=== PATIENT | male | born 1975 | race Caucasian/White ===

== ENCOUNTER 2021-03-30 11:05 | Emergency (ER) | payer SELFPAY ==
[2021-03-30 11:14] VITALS: BP 139/82; PULSE 91; RESP 16; TEMP 37.2; O2SAT 100
--- NOTE | 2021-03-30 11:20 | ED.UPPEXIN ---
HPI - Extremity Injury (Upper) General Chief Complaint: Extremity Injury, Upper Stated Complaint: R thumb injury Time Seen by Provider: 03/30/21 11:18 Source: patient Mode of arrival: ambulatory Limitations: no limitations History of Present Illness HPI narrative: 46-year-old male presented for complaint of pain to the tip of the right thumb for about 2 weeks after injury. He states time of injury he was sewing work boot with a large gauge needle when he punctured the right thumb. Endorses minimal bleeding at the time, and he cleaned it with soap and water and iodine. Endorses it healed on its own and did not seek consult at the time of injury. Denies redness, swelling, fever, streaking or drainage to the site. Patient states the needle was dirty, as it was found in an outside toolbox when he used it. Unsure of tetanus vaccination. Related Data Home Medications Medication Instructions Recorded Confirmed No Home Medications 03/30/21 03/30/21 Allergies Allergy/AdvReac Type Severity Reaction Status Date / Time No Known Allergies Allergy Verified 05/29/17 20:08 Review of Systems Review of Systems: CONSTITUTIONAL: Denies fever, chills EYES: Denies visual changes ENT: Denies rhinorrhea CARDIOVASCULAR: Denies chest pain RESPIRATORY: Denies cough or dyspnea. GASTROINTESTINAL: Denies abdominal pain, nausea, vomiting, or diarrhea. SKIN: Endorses puncture wound to the right thumb MUSCULOSKELETAL: Denies back pain, joint pain, or myalgia. NEUROLOGIC: Denies headache, numbness, tingling, or weakness. PSYCH: Denies depression or anxiety. All systems reviewed & are unremarkable except as noted in HPI and below PMFSH Comments At time of signature, I have reviewed and agree with nursing past medical, surgical, social and family history unless otherwise noted. Please see nursing chart for further information. There is no relevant family history pertinent to the presenting complaint Exam Narrative: GENERAL: Well-appearing, well-nourished, and in no acute distress. HEAD: Normocephalic, atraumatic. EYES: PERRLA, conjunctivae clear NECK: Supple. CHEST: Speaks in full sentences. No respiratory distress. HEART: Regular rate and rhythm. Normal and equal peripheral pulses. EXTREMITIES: Right thumb with approximately 0.5 cm healing puncture site with mild erythema, mild swelling, and mild tenderness with deep palpation. No apparent deformity. Normal ROM. Cap refill less than 3 seconds. Radial PP. SKIN: Warm, dry, no rash. NEURO: Alert and oriented x3. PSYCH: Normal mood and affect Course Course Emergency Course: We discussed appearance of wound, healing at this time without signs of infection. Will update tetanus. v/u Patient is aware of diagnosis, understands and agrees to treatment plan. Anticipatory guidance given. Patient agrees to follow-up as directed and is aware of reasons to seek care at the emergency department. Portions of this record may have been created with voice recognition software Level of Care: Express Care Visit Vital Signs Vital signs: Vital Signs Temperature 99 F 03/30/21 11:14 Pulse Rate 91 03/30/21 11:14 Respiratory Rate 16 03/30/21 11:14 Blood Pressure 139/82 03/30/21 11:14 Pulse Oximetry 100 03/30/21 11:14 Temperature 99 F 03/30/21 11:14 Pulse Rate 91 03/30/21 11:14 Respiratory Rate 16 03/30/21 11:14 Blood Pressure 139/82 03/30/21 11:14 Pulse Oximetry 100 03/30/21 11:14 Reviewed MDM - Extremity Injury (Upper) MDM Narrative Medical decision making narrative: Patient's injury and pain appear to be of musculoskeletal nature. No concerns for compartment syndrome. No concern for tendon or nerve injury. Patient is treatable on an outpatient basis. Differential Diagnosis Differential diagnosis: Likely finger sprain and other (phalanx fracture, puncture wound, laceration, cellulitis) Discharge Plan Discharge Clinical Impression: Puncture wound Patient Dispo
[2021-03-30] MEDS: TETANUS,DIPHTHERIA,AC PERTUSSIS ADULT (0.5 ML) BOOSTRIX IM (11:28)
== END 2021-03-30 11:34 | disposition home or self-care (01) ==
PROVIDERS: Emergency Provider Nurse Practitioner Family
DX: S61.031A Puncture wound without foreign body of right thumb without damage to nail, initial encounter (principal); W27.3XXA Contact with needle (sewing), initial encounter; Z23 Encounter for immunization
CPT/HCPCS: 90471; 90715; 99202; G0463

== ENCOUNTER 2021-05-04 19:52 | Emergency (ER) | payer SELFPAY ==
[2021-05-04] VITALS (13 sets, daily range): BP systolic 146–173; BP diastolic 84–103; PULSE 57–79; RESP 15–21; TEMP 36.7; O2SAT 93–100
--- NOTE | ~2021-05-04 | XR_ITS ---
EXAMINATION: XR chest 2V DATE: 05/04/2021 21:06 INDICATION: 2 days of left-sided chest pain TECHNIQUE: PA and lateral views of the chest were obtained. COMPARISON: Chest radiograph dated 02/27/2014 FINDINGS: The lungs remain clear with no focal airspace opacities, pulmonary edema, pleural effusion or pneumot horax. The cardiomediastinal silhouette is normal. Mild to moderate spondylosis in the thoracic and v isualized upper lumbar spine. IMPRESSION: 1. No acute cardiopulmonary disease. Reviewed, dictated and finalized at location A.
--- NOTE | 2021-05-04 19:53 | ECG_ITS ---
Measurements Intervals [place] Rate: 65 P: 57 FL: 149 QRS: 73 QRSD: 101 T: 34 QT: 347 QTc: 361 Interpretive Statements SINUS RHYTHM EARLY REPOLARIZATION NO PREVIOUS ECG AVAILABLE FOR COMPARISON Electronically Signed On 05-05-2021 14:13:32 CDT by Fritz Espitia M.D.
--- NOTE | 2021-05-04 20:25 | ED.GENADULT ---
HPI - General Adult General Chief complaint: Chest Pain Stated complaint: chest pains Time Seen by Provider: 05/04/21 20:12 History of Present Illness HPI narrative: Patient is a 46-year-old gentleman who presents the emergency department with chief complaint of chest pain. Patient reports that the is an avid cannabis user and yesterday was on a hike of about 9 miles and used several cannabis Gummies and then was using a higher concentration vape pen that was used patient states that he felt a tightness in the left side of his chest and then reports that the symptoms started to slowly improve. Patient states that he had another episode afterwards and then had another episode this morning. Patient decided to come to the emergency department as he worked his manual labor and usually does not have these type of discomfort. Patient states that previously whenever he is used a THC vape pen of this concentration he has had some tightness in his chest. The patient also reports that he has had some palpitations and fluttering in his chest and felt a little anxious Related Data Home Medications Medication Instructions Recorded Confirmed No Home Medications 03/30/21 03/30/21 Allergies Allergy/AdvReac Type Severity Reaction Status Date / Time No Known Allergies Allergy Verified 05/29/17 20:08 Review of Systems Review of Systems: A 10 system review of systems was completed on the patient and is negative except for what is stated in the HPI. Nursing and ancillary documentation was reviewed. Exam Narrative: GENERAL: Well-appearing, well-nourished, and in no acute distress. HEAD: Normocephalic, atraumatic. EYES: PERRLA and EOMI. ENT: Nares clear, no rhinorrhea or epistaxis. Mucous membranes moist. NECK: Supple. CHEST: Clear to auscultation. No respiratory distress. HEART: Regular rate and rhythm. No murmur heard. Normal peripheral pulses. ABDOMEN: Soft, nontender, nondistended, normal active bowel sounds. EXTREMITIES: Normal range of motion. No edema. SKIN: Warm, dry, no rash. NEURO: No focal deficits. Alert and oriented x3. PSYCH: Normal mood and affect. Course Course Emergency Course: EKG is sinus rhythm rate of [address] elevation or ST depression Vital Signs Vital signs: Vital Signs Temperature 36.7 C 05/04/21 19:54 Pulse Rate 79 05/04/21 19:54 Respiratory Rate 18 05/04/21 19:54 Blood Pressure 159/103 H 05/04/21 19:54 Pulse Oximetry 100 05/04/21 19:54 Temperature 36.7 C 05/04/21 19:54 Pulse Rate 67 05/04/21 20:45 Respiratory Rate 17 05/04/21 20:45 Blood Pressure 158/87 H 05/04/21 20:32 Pulse Oximetry 96 05/04/21 20:45 Medical Decision Making Vital Signs Vital Signs: Vital Signs Temperature 36.7 C 05/04/21 19:54 Pulse Rate 79 05/04/21 19:54 Respiratory Rate 18 05/04/21 19:54 Blood Pressure 159/103 H 05/04/21 19:54 Pulse Oximetry 100 05/04/21 19:54 Temperature 36.7 C 05/04/21 19:54 Pulse Rate 67 05/04/21 20:45 Respiratory Rate 17 05/04/21 20:45 Blood Pressure 158/87 H 05/04/21 20:32 Pulse Oximetry 96 05/04/21 20:45 Lab Data Result diagrams: 05/04/21 20:32 05/04/21 20:32 Labs: Lab Results 05/04/21 05/04/21 05/04/21 Range/Units 20:32 20:32 20:32 WBC 6.0 (4.5-10.0) K/mm3 RBC 4.96 (4.6-6.20) M/mm3 Hgb 15.0 (14.0-18.0) g/dL Hct 44.2 (42.0-52.0) % MCV 89.1 (80-100) fl MCH 30.2 (26-34) pg MCHC 33.9 (32-36) g/dl RDW 12.8 (11.5-14.5) % Plt Count 212 (150-375) k/mm3 MPV 10.7 H (7.4-10.4) fl Immature Gran % (Auto) 0.2 (0-0.5) % Neut % (Auto) 57.8 (45.5-73.1) % Lymph % (Auto) 30.0 (18.3-44.2) % [place]anan % (Auto) 9.3 H (2.6-8.5) % Eos % (Auto) 2.0 (0-4.4) % Baso % (Auto) 0.7 (0.2-1.2) % Lymph # (Auto) 1.81 (0.9-3.2) K/mm3 [place]anan # (Auto) 0.6 (0.1-0.6) K/mm3 Eos # (Auto) 0.1 (0-0.3) K/mm3 Baso # (Auto) 0.0 (0.0-
[2021-05-04] MEDS: ASPIRIN 81 MG CHEWABLE TABLET 324 MG PO (20:33)
[2021-05-04] MEDS: LORazepam INJ (*CRX) 2 MG/ML VIAL 1 MG IV PUSH (20:38)
[2021-05-04 20:43] LABS: Basophils Percent Auto 0.7 % (0.2-1.2); Eosinophils Absolute Auto 0.1 K/mm3 (0-0.3); Hematocrit 44.2 % (42.0-52.0); Immature Granulocyte Absolute 0.01 K/mm3 (0.00-0.031); Immature Granulocyte Percent A 0.2 % (0-0.5); Lymphocytes Absolute Auto 1.81 K/mm3 (0.9-3.2); Mean Corpuscular HGB Conc 33.9 g/dl (32-36); Mean Corpuscular Hemoglobin 30.2 pg (26-34); Mean Corpuscular Volume 89.1 fl (80-100); Mean Platelet Volume 10.7 fl (7.4-10.4); Monocytes Absolute Auto 0.6 K/mm3 (0.1-0.6); Monocytes Percent Auto 9.3 % (2.6-8.5); Neutrophils Absolute Auto 3.5 K/mm3 (1.3-6.7); Neutrophils Percent Auto 57.8 % (45.5-73.1); Platelet Count Result 212 k/mm3 (150-375); Red Blood Count 4.96 M/mm3 (4.6-6.20); Red Cell Distribution Width 12.8 % (11.5-14.5)
[2021-05-04 20:49] LABS: Prothrombin Time 12.5 Seconds (11.1-14.7)
[2021-05-04 20:50] LABS: Partial Thromboplastin Time 25.7 SECONDS (22.3-36.8)
[2021-05-04 20:53] LABS: Alanine Aminotransferase 75 U/L (4-50); Albumin Level 4.3 g/dL (3.5-5.1); Alkaline Phosphatase 52 U/L (38-126); Anion Gap 6 mmol/L (8-16); Aspartate Amino Transferase 41 U/L (17-59); Bilirubin,Total 0.1 mg/dL (0.2-1.3); Blood Urea Nitrogen 17 mg/dL (9-20); Calcium 9.1 mg/dL (8.4-10.2); Carbon Dioxide 27 mmol/L (22-30); Chloride 105 mmol/L (98-107); Estimated CRCL calculation 100 ml/min; Estimated Glomerular Filt Rate > 60; Glucose 101 mg/dL (65-110); Lipase 145 U/L (23-300); Potassium 4.3 mmol/L (3.4-5.0); Sodium 138 mmol/L (137-145)
[2021-05-04 21:04] LABS: Troponin I < 0.012 ng/mL (0.000-0.034)
== END 2021-05-04 22:12 | disposition home or self-care (01) ==
PROVIDERS: Emergency Medicine; Emergency Provider Emergency Medicine
DX: R07.89 Other chest pain (principal)
CPT/HCPCS: 36415; 71046; 80053; 83690; 84484; 85025; 85610; 85730; 93005; 96374; 99284; A9270; J2060

== ENCOUNTER 2021-05-20 17:45 | Emergency (ER) | payer SELFPAY ==
[2021-05-20] VITALS (11 sets, daily range): BP systolic 136–154; BP diastolic 93–101; PULSE 69–86; RESP 11–18; TEMP 37.2; O2SAT 95–99
--- NOTE | ~2021-05-20 | XR_ITS ---
XR chest 2V DATE: 05/20/2021 18:14 INDICATION: Left-sided chest pain radiating to back, shortness of breath for 2 weeks TECHNIQUE: PA and lateral views COMPARISON: 05/04/2021 2 view chest FINDINGS: Normal heart size. No hilar or mediastinal enlargement. No pulmonary infiltrate or consolid ation, pleural effusion or pulmonary vascular congestion. Degenerative spurring mild scoliosis of the thoracic spine. IMPRESSION: No active cardiopulmonary disease Reviewed, dictated and finalized at location A.
--- NOTE | 2021-05-20 17:47 | ECG_ITS ---
Measurements Intervals [place] Rate: 82 P: 60 CT: 132 QRS: 76 QRSD: 97 T: 40 QT: 334 QTc: 390 Interpretive Statements SINUS RHYTHM COMPARED TO ECG 05/04/2021 20:02:57 NO SIGNIFICANT CHANGES Electronically Signed On 05-20-2021 18:45:40 CDT by En Jennings M.D.
[2021-05-20 18:09] LABS: Basophils Absolute Auto 0.1 K/mm3 (0.0-0.1); Basophils Percent Auto 0.8 % (0.2-1.2); Eosinophils Absolute Auto 0.1 K/mm3 (0-0.3); Eosinophils Percent Auto 1.6 % (0-4.4); Hematocrit 44.4 % (42.0-52.0); Immature Granulocyte Absolute 0.02 K/mm3 (0.00-0.031); Immature Granulocyte Percent A 0.3 % (0-0.5); Lymphocytes Absolute Auto 1.74 K/mm3 (0.9-3.2); Lymphocytes Percent Auto 22.9 % (18.3-44.2); Mean Corpuscular HGB Conc 33.8 g/dl (32-36); Mean Corpuscular Hemoglobin 30.1 pg (26-34); Mean Corpuscular Volume 89.2 fl (80-100); Mean Platelet Volume 10.4 fl (7.4-10.4); Monocytes Absolute Auto 0.7 K/mm3 (0.1-0.6); Monocytes Percent Auto 9.5 % (2.6-8.5); Neutrophils Absolute Auto 4.9 K/mm3 (1.3-6.7); Neutrophils Percent Auto 64.9 % (45.5-73.1); Platelet Count Result 196 k/mm3 (150-375); Red Blood Count 4.98 M/mm3 (4.6-6.20); Red Cell Distribution Width 12.7 % (11.5-14.5); White Blood Count 7.6 K/mm3 (4.5-10.0)
--- NOTE | 2021-05-20 18:15 | PC.NURSE ---
Dr. Linda at bedside to assess pt.
[2021-05-20 18:17] LABS: Prothrombin Time 12.4 Seconds (11.1-14.7)
[2021-05-20 18:18] LABS: Partial Thromboplastin Time 28.2 SECONDS (22.3-36.8)
[2021-05-20 18:19] LABS: Alanine Aminotransferase 80 U/L (4-50); Albumin Level 4.6 g/dL (3.5-5.1); Alkaline Phosphatase 59 U/L (38-126); Anion Gap 7 mmol/L (8-16); Aspartate Amino Transferase 51 U/L (17-59); Bilirubin,Total 0.2 mg/dL (0.2-1.3); Blood Urea Nitrogen 20 mg/dL (9-20); Calcium 8.7 mg/dL (8.4-10.2); Carbon Dioxide 28 mmol/L (22-30); Chloride 100 mmol/L (98-107); Estimated CRCL calculation 90 ml/min; Estimated Glomerular Filt Rate > 60; Glucose 88 mg/dL (65-110); Lipase 149 U/L (23-300); Potassium 4.5 mmol/L (3.4-5.0); Sodium 135 mmol/L (137-145)
--- NOTE | 2021-05-20 18:26 | ED.CHESTPAIN ---
HPI - Chest Pain General Chief Complaint: Chest Pain Stated Complaint: chest pain Time Seen by Provider: 05/20/21 18:14 History of Present Illness HPI narrative: Patient is a 46-year-old male complaining of chest pain, left chest wall, 5 out of 10, worse with movement started 1 week ago, Pt states that he was seen here 2 weeks ago for the same complaint and his work-up was negative, diagnosed with musculoskeletal pain. 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 Patient also states that he exercises a lot and plays. Patient denies any shortness of breath, abdominal pain, nausea, vomiting, diaphoresis, fever or chills. Patient thinks that it could be anxiety . Related Data Home Medications Medication Instructions Recorded Confirmed No Home Medications 03/30/21 03/30/21 Allergies Allergy/AdvReac Type Severity Reaction Status Date / Time No Known Allergies Allergy Verified 05/29/17 20:08 Review of Systems Review of Systems: All systems reviewed & are unremarkable except as noted in HPI and below Constitutional: Constitutional: Denies body ache(s), Denies chills, Denies excessive sweating, Denies fatigue, Denies fever(s), Denies headache(s), Denies lethargy, Denies malaise, Denies weakness and Denies weight loss Eyes: Eyes: Denies blurry vision, Denies change in vision and Denies loss of vision ENT: Denies dizziness, Denies ear discharge, Denies headache(s), Denies lip swelling, Denies epistaxis, Denies nasal congestion, Denies neck pain, Denies throat swelling and Denies tongue swelling Cardiovascular: Cardiovascular: Denies diaphoresis, Denies rapid heart rate, Denies edema, Denies irregular heart rhythm, Denies lightheadedness, Denies palpitations, Denies dyspnea and Denies dyspnea on exertion Respiratory: Respiratory: Denies chest congestion, Denies cough, Denies hemoptysis, Denies dyspnea and Denies dyspnea on exertion Gastrointestinal: Gastrointestinal: Denies abdominal pain, Denies melena, Denies hematochezia, Denies diarrhea, Denies nausea, Denies vomiting and Denies hematemesis Musculoskeletal: Musculoskeletal: Denies abnormal gait, Denies deformity, Denies joint swelling, Denies limited range of motion, Denies neck pain and Denies numbness Neurologic: Denies Abnormal speech present, Denies abnormal gait, Denies confusion, Denies dizziness, Denies headache(s), Denies focal weakness, Denies loss of vision, Denies numbness, Denies Other visual disturbances, Denies Sensory deficit (Neuro) and Denies weakness Psychiatric: Psychiatric: Denies confusion, Denies depression, Denies auditory hallucinations, Denies homicidal ideation and Denies suicidal ideation Endocrine: Endocrine: Denies cold intolerance, Denies excessive sweating, Denies fatigue, Denies heat intolerance and Denies palpitations Hematologic/Lymphatic: Hematologic/Lymphatic: Denies easy bleeding and Denies easy bruising Allergic/Immunologic: Allergic/Immunologic: Denies lip swelling, Denies throat swelling and Denies tongue swelling PMFSH Comments Past medical history: None Family history: Negative for coronary artery disease or [place] Social history: Non-smoker, no EtOH use, occasional marijuana use Exam Const: General: cooperative, healthy appearing, comfortable, no acute distress, well developed, alert and awake; No confusion Orientation/consciousness: oriented to person, oriented to place, oriented to time, patient oriented x3 and No confusion Limitations: no limitations HENMT: Head: normal to inspection, normocephalic and atraumatic Ears: hearing grossly normal bilaterally, TM normal on the right and TM normal on the left General nose exam: Normal external nose present, Normal nares present and No nasal discharge present Face and sinus: normal facial exam Mouth: Yes Normal oral and palatal mucosa present, Yes lip normal, Yes tongue normal and Yes oropharynx normal Throat: posterior oropharynx arianne
[2021-05-20 18:31] LABS: Troponin I < 0.012 ng/mL (0.000-0.034)
== END 2021-05-20 20:02 | disposition home or self-care (01) ==
LOC: ANHED 18:57
PROVIDERS: Emergency Provider Emergency Medicine
DX: R07.89 Other chest pain (principal)
CPT/HCPCS: 36415; 71046; 80053; 83690; 84484; 85025; 85610; 85730; 93005; 99284

== ENCOUNTER 2022-03-15 13:03 | Emergency (ER) | payer OTHER, MEDICAID, SELFPAY ==
[2022-03-15 13:49] VITALS: BP 134/98; PULSE 75; RESP 18; TEMP 37.1; O2SAT 97
[2022-03-15 14:19] LABS: Basophils Absolute Auto 0.1 K/mm3 (0.0-0.1); Basophils Percent Auto 0.9 % (0.2-1.2); Eosinophils Absolute Auto 0.1 K/mm3 (0-0.3); Eosinophils Percent Auto 1.4 % (0-4.4); Hematocrit 44.8 % (42.0-52.0); Hemoglobin 15.2 g/dL (14.0-18.0); Immature Granulocyte Absolute 0.01 K/mm3 (0.00-0.031); Immature Granulocyte Percent A 0.2 % (0-0.5); Lymphocytes Absolute Auto 1.29 K/mm3 (0.9-3.2); Lymphocytes Percent Auto 23.1 % (18.3-44.2); Mean Corpuscular HGB Conc 33.9 g/dl (32-36); Mean Corpuscular Hemoglobin 29.9 pg (26-34); Mean Corpuscular Volume 88.2 fl (80-100); Mean Platelet Volume 10.3 fl (7.4-10.4); Monocytes Absolute Auto 0.4 K/mm3 (0.1-0.6); Neutrophils Absolute Auto 3.8 K/mm3 (1.3-6.7); Neutrophils Percent Auto 67.4 % (45.5-73.1); Platelet Count Result 232 k/mm3 (150-375); Red Blood Count 5.08 M/mm3 (4.6-6.20); Red Cell Distribution Width 12.3 % (11.5-14.5); White Blood Count 5.6 K/mm3 (4.5-10.0)
[2022-03-15 14:35] LABS: Alanine Aminotransferase 28 U/L (6-50); Albumin Level 4.2 g/dL (3.5-5.1); Alkaline Phosphatase 54 U/L (38-126); Anion Gap 7 mmol/L (8-16); Aspartate Amino Transferase 24 U/L (17-59); Bilirubin,Total 0.4 mg/dL (0.2-1.3); Blood Urea Nitrogen 15 mg/dL (9-20); Calcium 8.6 mg/dL (8.4-10.2); Carbon Dioxide 27 mmol/L (22-30); Chloride 105 mmol/L (98-107); Estimated CRCL calculation 110 ml/min; Estimated Glomerular Filt Rate > 60; Glucose 93 mg/dL (65-110); Lipase 97 U/L (23-300); Potassium 4.1 mmol/L (3.4-5.0); Sodium 139 mmol/L (137-145)
[2022-03-15 14:36] LABS: Appearance Urine Clear (Clear); Bilirubin Urine Negative (Negative); Blood Urine Negative (Negative); Color Urine Yellow (Yellow); Glucose Urine UA Negative (Negative); Ketones Urine Negative (Negative); Leukocyte Esterase Ur Negative LEU/UL (Negative); Nitrate Urine Negative (Negative); Protein Urine Negative (Negative); Urobilinogen Urine 0.2 mg/dL (<2.0)
[2022-03-15 14:49] LABS: Add Urine Microscopic? NO
--- NOTE | 2022-03-15 16:22 | ED.ABDPAIN ---
HPI - Abdominal Pain General Chief Complaint: Abdominal Pain Stated Complaint: abd pain Time Seen by Provider: 03/15/22 15:06 History of Present Illness HPI narrative: Patient is a 47-year-old male with a history of hypertension presenting with epigastric pain. Patient states that several nights ago he went out with some friends and he had approximately 5-6 alcoholic beverages. States that he really only drinks about 4 times a year. States that he normally tries to stick to a healthy diet. States that since that time he has had epigastric soreness. Denies nausea or vomiting. States that he did have some diarrhea following his night out but this has resolved. He denies chest pain or shortness of breath. No lightheadedness or palpitations. No dysuria. Related Data Allergies Allergy/AdvReac Type Severity Reaction Status Date / Time No Known Allergies Allergy Verified 03/15/22 15:21 Review of Systems Review of Systems: All systems reviewed & are unremarkable except as noted in HPI and below PMFSH Past Medical History Medical History Hypertension Family History Family History Father Hypertension Mother Diabetes mellitus Hypertension Grandparent Diabetes mellitus Hypertension Social History Social History Social History: Caffeine-8oz every other day Smoking status: Never smoker Alcohol intake: never Substance use: current Substance use type: marijuana Occupation/Education: occupation Additional occupation/education comments: [employer] Agree to blood products: Yes Exam Narrative: GENERAL: Well-appearing, well-nourished, and in no acute distress. HEAD: Normocephalic, atraumatic. EYES: PERRLA and EOMI. ENT: Nares clear, no rhinorrhea or epistaxis. Mucous membranes moist. NECK: Supple. CHEST: Clear to auscultation. No respiratory distress. HEART: Regular rate and rhythm. No murmur heard. Normal peripheral pulses. ABDOMEN: Soft, very minimal tenderness in epigastrium, nondistended, normal active bowel sounds. EXTREMITIES: Normal range of motion. No edema. SKIN: Warm, dry, no rash. NEURO: No focal deficits. Alert and oriented x3. PSYCH: Normal mood and affect. Course Vital Signs Vital signs: Vital Signs Temperature 98.7 F 03/15/22 13:49 Pulse Rate 75 03/15/22 13:49 Respiratory Rate 18 03/15/22 13:49 Blood Pressure 134/98 H 03/15/22 13:49 Pulse Oximetry 97 03/15/22 13:49 Oxygen Delivery Room Air 03/15/22 13:49 Temperature 98.7 F 03/15/22 13:49 Pulse Rate 86 03/15/22 17:55 Respiratory Rate 16 03/15/22 17:55 Blood Pressure 140/86 03/15/22 17:55 Pulse Oximetry 98 03/15/22 17:55 Oxygen Delivery Room Air 03/15/22 13:49 MDM - Abdominal Pain MDM Narrative Medical decision making narrative: Patient is a 47-year-old male presenting with epigastric pain. Vitals within normal limits. Patient is well-appearing and in no acute distress. Exam is remarkable for the above. Blood work is unremarkable. UA is unremarkable. We will try GI cocktail. Patient reports some improvement in his symptoms following the GI cocktail. Patient states that he has actually been eating a lot of comfort food lately and thinks that maybe this has been setting off the pain. States he has been belching a lot more lately. Suspect his symptoms are related to GERD vs gastritis vs esophagitis. We will send in a prescription for famotidine and advised bland food. Advise close primary follow-up. Appropriate return precautions given. Patient discharged in stable condition. Differential Diagnosis Differential diagnosis: Likely abdominal pain, calculus of kidney, constipation, diverticulitis, gastroenteritis, pancreatitis and small bowel obstruction Lab Data 03/15/22 14:08 03/15/22 14:0
[2022-03-15] MEDS: BELLADONNA ALK/PHENOB ELIX 10 ML, MAG HYDROX/ALUMINUM HYD/SIMETH 30 ML, LIDOCAINE HCL 2... PO (17:00)
[2022-03-15 17:55] VITALS: BP 140/86; PULSE 86; RESP 16; O2SAT 98
== END 2022-03-15 18:00 | disposition home or self-care (01) ==
PROVIDERS: Emergency Medicine; Emergency Provider Emergency Medicine; PCP Internal Medicine
DX: R10.13 Epigastric pain (principal); I10 Essential (primary) hypertension
CPT/HCPCS: 36415; 80053; 81003; 83690; 85025; 99283; A9270

== ENCOUNTER 2022-03-24 09:58 | Outpatient (CLI) | payer OTHER, MEDICAID, SELFPAY ==
--- NOTE | 2022-03-24 10:35 | EST_ITS ---
Patient Info Name: Tony Goode Age: 47 years : 1975 Gender: Male Ht: 72 in Wt: 202 lbs BSA: 2.17 m2 HR: 70 bpm BP: 139 / 97 mmHg Heart Rhythm: Sinus Rhythm Exam Date: 03/24/2022 11:22 AM Exam Location: [facility] Stress Patient Status: Outpatient Admit Date: 03/24/2022 Staff Ordering Physician: Shelly Henry NP Attending Provider: Shelly Henry NP Exercise Technologist: Shari Rodriguez CT Exercise Physician: Manuel Waldron DO Exam Type: CA stress test treadmill Study Info Indications R07.9 - Chest pain, unspecified A treadmill exercise stress test was performed. Summary 1. 1. Negative [facility] exercise stress test for ischemic ST changes by ECG criteria. 2. 2. Good functional capacity, achieving 12 METs of workload. 3. 3. Appropriate HR response to exercise. 4. 4. Appropriate HR recovery at 1 minute post exercise. 5. 5. No imaging with stress testing. 6. 6. Patient informed of the above results. Protocol: [facility] Stress ECG Details Stage: REST Duration (min): 1 min : 28 sec Speed (mph): 0.0 Grade (%): 0 HR (bpm): 76 SBP (mmHg): 139 DBP (mmHg): 97 METS: --- Stage: REST Duration (min): 6 min : 1 sec Speed (mph): 0.0 Grade (%): 0 HR (bpm): 75 SBP (mmHg): 139 DBP (mmHg): 97 METS: --- Stage: STAGE 1 Duration (min): 1 min : 0 sec Speed (mph): 1.7 Grade (%): 10 HR (bpm): 92 SBP (mmHg): 139 DBP (mmHg): 97 METS: --- Stage: STAGE 1 Duration (min): 2 min : 0 sec Speed (mph): 1.7 Grade (%): 10 HR (bpm): 101 SBP (mmHg): 139 DBP (mmHg): 97 METS: --- Stage: STAGE 1 Duration (min): 3 min : 0 sec Speed (mph): 1.7 Grade (%): 10 HR (bpm): 93 SBP (mmHg): 146 DBP (mmHg): 69 METS: --- Stage: STAGE 2 Duration (min): 1 min : 0 sec Speed (mph): 2.5 Grade (%): 12 HR (bpm): 102 SBP (mmHg): 146 DBP (mmHg): 69 METS: --- Stage: STAGE 2 Duration (min): 2 min : 0 sec Speed (mph): 2.5 Grade (%): 12 HR (bpm): 107 SBP (mmHg): 149 DBP (mmHg): 76 METS: --- Stage: STAGE 2 Duration (min): 3 min : 0 sec Speed (mph): 2.5 Grade (%): 12 HR (bpm): 113 SBP (mmHg): 149 DBP (mmHg): 76 METS: --- Stage: STAGE 3 Duration (min): 1 min : 0 sec Speed (mph): 3.4 Grade (%): 14 HR (bpm): 122 SBP (mmHg): 149 DBP (mmHg): 76 METS: --- Stage: STAGE 3 Duration (min): 2 min : 0 sec Speed (mph): 3.4 Grade (%): 14 HR (bpm): 133 SBP (mmHg): 179 DBP (mmHg): 82 METS: --- Stage: STAGE 3 Duration (min): 3 min : 0 sec Speed (mph): 3.4 Grade (%): 14 HR (bpm): 143 SBP (mmHg): 175 DBP (mmHg): 75 METS: --- Stage: STAGE 4 Duration (min): 1 min : 0 sec Speed (mph): 4.2 Grade (%): 16 HR (bpm): 152 SBP (mmHg): 175 DBP (mmHg): 75 METS: ---
== END 2022-03-24 09:59 | disposition home or self-care (01) ==
LOC: ANHCARD 10:00
PROVIDERS: PCP Internal Medicine; Visit Provider Nurse Practitioner
DX: R07.9 Chest pain, unspecified (principal)
CPT/HCPCS: 93017

== ENCOUNTER 2022-03-30 13:25 | Outpatient (CLI) | payer MEDICAID, SELFPAY ==
[2022-03-30 15:25] LABS: Hematocrit 44.9 % (42.0-52.0); Hemoglobin 15.1 g/dL (14.0-18.0); Mean Corpuscular HGB Conc 33.6 g/dl (32-36); Mean Corpuscular Hemoglobin 29.2 pg (26-34); Mean Corpuscular Volume 86.7 fl (80-100); Mean Platelet Volume 10.9 fl (7.4-10.4); Platelet Count Result 213 k/mm3 (150-375); Red Blood Count 5.18 M/mm3 (4.6-6.20); Red Cell Distribution Width 12.1 % (11.5-14.5); White Blood Count 5.1 K/mm3 (4.5-10.0)
== END 2022-03-30 13:26 | disposition home or self-care (01) ==
LOC: ANHLAB 13:26
PROVIDERS: PCP Internal Medicine; Visit Provider Nurse Practitioner
DX: K92.0 Hematemesis (principal)
CPT/HCPCS: 36415; 85027

== ENCOUNTER 2022-04-17 02:58 | Day surgery (SDC) | payer MEDICAID, SELFPAY ==
[2022-04-06 09:26] VITALS: BMI 27.3
[2022-04-17 08:36] VITALS: BP 139/83; PULSE 66; RESP 16; TEMP 36.9; O2SAT 99
[2022-04-17] MEDS: LACTATED RINGERS 1,000 ML 150 ML IV CONT (08:53)
--- NOTE | 2022-04-17 09:11 | WPDHPUPDATE1 ---
History and Physical Update Update Date/Time: 04/17/22 09:11 History and Physical has been reviewed, including an updated exam of the patient. There are NO changes in the patient's condition. Risks, benefits, and alternatives have been discussed and questions answered. Patient agrees to proceed with procedure.
[2022-04-17] MEDS: BENZOCAINE (*SP) 60 ML SPRAY CAN (HURRICAINE) 1 SPRAY MUCOUS MEM (09:15)
--- NOTE | 2022-04-17 09:31 | WPDANESEPPF ---
Anes - Initial Pre Proc Eval Procedure: Operation Date: 04/17/22 09:30 Proposed Procedures p Esophagogastroduodenoscopy & Colonoscopy - Evaristo Shirley MD Date/Time: 04/17/22 09:31 Surgeon: Evaristo Shirley MD Pre Op Diagnosis: dysphagia, constipation Patient Data Age: 47 Gender: M Height: 1.83 m Weight: 89.1 kg Last Vital Signs Temp 98.5 F 04/17/22 08:36 Pulse 66 04/17/22 08:36 Resp 16 04/17/22 08:36 BP 139/83 04/17/22 08:36 Pulse Ox 99 04/17/22 08:36 O2 Del Method Room Air 04/17/22 08:36 Allergies Allergy/AdvReac Type Severity Reaction Status Date / Time No Known Allergies Allergy Verified 04/17/22 08:33 Home Medications Medication Instructions Recorded Confirmed Type amlodipine 5 mg tablet 5 mg PO DAILY #90 tabs 03/19/22 04/09/22 Rx omeprazole 40 mg capsule,delayed 40 mg PO BID #60 caps 03/30/22 04/09/22 Rx release sucralfate 1 gram tablet (Carafate) 1 g PO ACHS #120 tabs 03/30/22 04/09/22 Rx amoxicillin 875 mg-potassium 1 tablet PO BID 10 days #20 tabs 04/09/22 04/17/22 Rx clavulanate 125 mg tablet Patient hx anesthesia problems: none Family hx anesthesia problems: none Results Review: All pre-operative results and documents have been reviewed as part of the pre-operative evaluation. [facility] Past Medical History Medical History Change in bowel habits Dysphagia Dysphonia Globus abdominalis Hematemesis Hypertension Family History Family History Father Hypertension Mother Diabetes mellitus Hypertension Grandparent Diabetes mellitus Hypertension Social History Social History Social History: Caffeine-8oz every other day Smoking status: Former smoker Tobacco type: cigarettes Alcohol intake: former Substance use: current Substance use type: marijuana Last use: Daily Lack of Transportation: No Lack of Food: Never True Current Housing: I Have Housing Concerned About Future Housing: No Difficulty Paying Gas/Electric Bills: No Difficulty Paying for Meds: No Currently Unemployed: No Education: Bachelor's Degree Difficulty w/ Childcare or Family Care: No Living arrangements: with family Occupation/Education: occupation Additional occupation/education comments: [employer] Spiritual care concerns: No Agree to blood products: Yes Anes - Eval Final PreProcedure Day of Procedure 04/17/22 09:31 Patient weight: normal Heart: regular rate and rhythm Lungs: clear to auscultation Airway: Mallampati scale class II Neurological: alert and oriented Last oral intake: >/= 8 hours ASA classification: II Emergent: no Anesthetic plan: proceed Anesthesia type and monitoring: general GIVS and standard monitoring Results Review: All pre-operative results and documents have been reviewed as part of the pre-operative evaluation. Informed Consent: The patient's anesthetic plan and its attendant risks and benefits were discussed with the patient/family/POA. Questions were solicited and answers provided to the satisfaction of the patient/family/POA.
[2022-04-17 09:40] VITALS: BP 85/52; PULSE 73; RESP 18; O2SAT 97
[2022-04-17 09:50] VITALS: BP 114/71; PULSE 64; RESP 16; O2SAT 100
[2022-04-17 10:00] VITALS: BP 121/89; PULSE 67; RESP 18; O2SAT 100
== END 2022-04-17 10:22 | disposition home or self-care (01) ==
PROVIDERS: PCP Internal Medicine; Visit Provider Internal Medicine Gastroenterology
PROC: 0DJ08ZZ Inspection of Upper Intestinal Tract, Via Natural or Artificial Opening Endoscopic (ICD-10-PCS; CPT 43235; principal; 2022-04-17 09:30)
DX: Z12.11 Encounter for screening for malignant neoplasm of colon (principal); K57.30 Diverticulosis of large intestine without perforation or abscess without bleeding; K64.8 Other hemorrhoids; R10.13 Epigastric pain; I10 Essential (primary) hypertension; Z87.891 Personal history of nicotine dependence
CPT/HCPCS: 45378; 43239; 88305; J2704; J7120

== ENCOUNTER 2022-05-10 09:35 | Emergency (ER) | payer MEDICAID, SELFPAY ==
[2022-05-10 09:47] VITALS: BP 134/82; PULSE 65; RESP 16; TEMP 36.2; O2SAT 100
--- NOTE | 2022-05-10 09:56 | ED.GENADULT ---
HPI - General Adult General Chief complaint: Upper Respiratory Infection Stated complaint: lt swollen nostril Source: patient Mode of arrival: ambulatory Limitations: no limitations History of Present Illness HPI narrative: 47 y/o male presented for c/o nose pain. Started with a pimple in left nare yesterday. States he 'messed with it' with his dirty hands after hiking. Denies getting pus/drainage from the site. Woke today with tenderness and mild swelling to the site. No drainage or bleeding. Denies any associated symptoms. Patient took Augmentin x10 days in Mar for sinus infection Related Data Home Medications Medication Instructions Recorded Confirmed amlodipine 5 mg tablet 5 mg PO DAILY 05/10/22 05/10/22 omeprazole 40 mg capsule,delayed 40 mg PO BID 05/10/22 05/10/22 release sucralfate 1 gram tablet 1 g PO DIRECTED 05/10/22 05/10/22 Allergies Allergy/AdvReac Type Severity Reaction Status Date / Time No Known Allergies Allergy Verified 05/10/22 09:50 Review of Systems Review of Systems: CONSTITUTIONAL: Denies body aches, fever, chills, or sweats. EYES: Denies visual changes, redness, or discharge. ENT: per HPI CARDIOVASCULAR: Denies chest pain, palpitations, or edema. RESPIRATORY: Denies cough or dyspnea. GASTROINTESTINAL: Denies abdominal pain, nausea, vomiting, or diarrhea. SKIN: Denies rash MUSCULOSKELETAL: Denies back pain, joint pain, or myalgia. NEUROLOGIC: Denies headache, numbness, tingling, or weakness. [facility] Past Medical History Medical History Change in bowel habits Dysphagia Dysphonia Globus abdominalis Hematemesis Hypertension Family History Family History Father Hypertension Mother Diabetes mellitus Hypertension Grandparent Diabetes mellitus Hypertension Social History Social History Social History: Caffeine-8oz every other day Smoking status: Former smoker Tobacco type: cigarettes Alcohol intake: former Substance use: current Substance use type: marijuana Last use: Daily Lack of Transportation: No Lack of Food: Never True Current Housing: I Have Housing Concerned About Future Housing: No Difficulty Paying Gas/Electric Bills: No Difficulty Paying for Meds: No Currently Unemployed: No Education: Bachelor's Degree Difficulty w/ Childcare or Family Care: No Living arrangements: with family Occupation/Education: occupation Additional occupation/education comments: [employer] Spiritual care concerns: No Agree to blood products: Yes Comments At time of signature, I have reviewed and agree with nursing past medical, surgical, social and family history unless otherwise noted. Please see nursing chart for further information. There is no relevant family history pertinent to the presenting complaint Exam Narrative: GENERAL: Well-appearing HEAD: Normocephalic, atraumatic. EYES: conjunctivae clear, and EOMI. ENT: Left nasal septum with approx 0.5cm diameter firm erythematous nodule, tender, no active drainage or fluctuance, no induration or swelling to nose, lips or face; Mucous membranes moist. Oropharynx without edema, erythema or lesions. NECK: Supple. No lymphadenopathy CHEST: Clear to auscultation. HEART: Regular rate and rhythm. SKIN: Warm, dry. NEURO: Alert and oriented x3. Course Course Emergency Course: Patient is aware of diagnosis, understands and agrees to treatment plan. Anticipatory guidance given. Patient agrees to follow-up as directed and is aware of reasons to seek care at the emergency department. Portions of this record may have been created with voice recognition software Level of Care: Express Care Visit Vital Signs Vital signs: Vital Signs Temperature 97.2 F L 05/10/22 09:47 Pulse Rate 65 05/10/22 09:47
== END 2022-05-10 10:14 | disposition home or self-care (01) ==
PROVIDERS: Emergency Provider Nurse Practitioner Family; PCP Nurse Practitioner
DX: J34.89 Other specified disorders of nose and nasal sinuses (principal); Z87.891 Personal history of nicotine dependence; F12.90 Cannabis use, unspecified, uncomplicated; I10 Essential (primary) hypertension
CPT/HCPCS: 99213; G0463

== ENCOUNTER 2022-08-17 08:34 | Outpatient (CLI) | payer OTHER, SELFPAY ==
[2022-08-17 15:57] LABS: Basophils Absolute Auto 0.1 K/mm3 (0.0-0.1); Basophils Percent Auto 0.8 % (0.2-1.2); Eosinophils Absolute Auto 0.1 K/mm3 (0-0.3); Eosinophils Percent Auto 2.4 % (0-4.4); Hematocrit 48.9 % (42.0-52.0); Hemoglobin 15.7 g/dL (14.0-18.0); Immature Granulocyte Absolute 0.02 K/mm3 (0.00-0.031); Immature Granulocyte Percent A 0.3 % (0-0.5); Lymphocytes Absolute Auto 1.74 K/mm3 (0.9-3.2); Lymphocytes Percent Auto 29.2 % (18.3-44.2); Mean Corpuscular HGB Conc 32.1 g/dl (32-36); Mean Corpuscular Hemoglobin 28.5 pg (26-34); Mean Corpuscular Volume 88.7 fl (80-100); Mean Platelet Volume 11.7 fl (7.4-10.4); Monocytes Absolute Auto 0.4 K/mm3 (0.1-0.6); Monocytes Percent Auto 7.2 % (2.6-8.5); Neutrophils Absolute Auto 3.6 K/mm3 (1.3-6.7); Neutrophils Percent Auto 60.1 % (45.5-73.1); Platelet Count Result 183 k/mm3 (150-375); Red Blood Count 5.51 M/mm3 (4.6-6.20); Red Cell Distribution Width 12.7 % (11.5-14.5)
[2022-08-17 18:11] LABS: Alanine Aminotransferase 34 U/L (6-50); Albumin Level 4.4 g/dL (3.5-5.1); Alkaline Phosphatase 51 U/L (38-126); Anion Gap 7 mmol/L (8-16); Aspartate Amino Transferase 54 U/L (17-59); Bilirubin,Total 0.4 mg/dL (0.2-1.3); Blood Urea Nitrogen 19 mg/dL (9-20); Calcium 9.1 mg/dL (8.4-10.2); Carbon Dioxide 29 mmol/L (22-30); Chloride 101 mmol/L (98-107); Cholesterol 166 mg/dL (0-200); Estimated Glomerular Filt Rate > 60; Glucose 83 mg/dL (65-110); HDL Direct 45 mg/dL; Potassium 4.4 mmol/L (3.4-5.0); Sodium 137 mmol/L (137-145); Triglycerides 61 mg/dL (<150)
[2022-08-17 18:22] LABS: LDL Cholesterol Direct 87 mg/dL
== END 2022-08-17 08:35 | disposition home or self-care (01) ==
LOC: ANHGOSHLAB 08:35
PROVIDERS: PCP Internal Medicine; Visit Provider Clinical Nurse Specialist
DX: Z13.228 Encounter for screening for other metabolic disorders (principal); I10 Essential (primary) hypertension
CPT/HCPCS: 36415; 80053; 80061; 84443; 85025

== ENCOUNTER 2022-09-21 17:55 | Emergency (ER) | payer OTHER, SELFPAY ==
[2022-09-21 18:07] VITALS: BP 140/101; PULSE 82; RESP 16; TEMP 36.6; O2SAT 99
--- NOTE | 2022-09-21 18:29 | ED.GENADULT ---
HPI - General Adult General Chief complaint: Wound/Laceration Stated complaint: Bit lip; body aches and tight around the face Time Seen by Provider: 09/21/22 18:29 Source: patient, RN notes reviewed and old records reviewed Mode of arrival: ambulatory Limitations: no limitations History of Present Illness HPI narrative: 47 year old male presents to [facility] care with complaints of biting his left upper lip 9 days ago and has had increased pain to his left upper lip area with noted ulcer type lesions noted.inside upper left lip. Patient reports that he also bit the right side of his tongue on Wednesday and it is also sore. Patient states that he has pain radiating in his left side of his face from his mouth area, has some headache also.with no history of migraines.Patient denies any fevers chills or sweats states that he has had some body aches, he reports that he needs an antibiotic. MD complaint: bit left lip and sore tongue Onset (ago): day(s) (pain increased for past4 days) Severity scale (1-10): 7 Treatments prior to arrival: none Related Data Allergies Allergy/AdvReac Type Severity Reaction Status Date / Time No Known Allergies Allergy Verified 09/21/22 18:05 Review of Systems Review of Systems: CONSTITUTIONAL: Denies fever, chills, or sweats. EYES: Denies visual changes, redness, or discharge. ENT: Denies rhinorrhea, congestion, sore throat, or otalgia.states that he has facial pain and he has pain to left upper lip and to right side of tongue CARDIOVASCULAR: Denies chest pain, palpitations, or edema. RESPIRATORY: Denies cough or dyspnea. GASTROINTESTINAL: Denies abdominal pain, nausea, vomiting, or diarrhea. GENITOURINARY: Denies dysuria or hematuria. SKIN: Denies rash or itching. MUSCULOSKELETAL: Denies back pain, joint pain, or myalgia. NEUROLOGIC: states some headache, no numbness, or weakness. PSYCHIATRIC: Denies anxiety or depression. All systems reviewed & are unremarkable except as noted in HPI and below PMFSH Past Medical History Medical History Change in bowel habits Dysphagia Dysphonia Globus abdominalis Hematemesis Hypertension Family History Family History Father Hypertension Mother Diabetes mellitus Hypertension Grandparent Diabetes mellitus Hypertension Social History Social History Social History: Caffeine-8oz every other day Smoking status: Former smoker Tobacco type: cigarettes Alcohol intake: former Substance use: current Substance use type: marijuana Last use: Daily Lack of Transportation: No Lack of Food: Never True Current Housing: I Have Housing Concerned About Future Housing: No Difficulty Paying Gas/Electric Bills: No Difficulty Paying for Meds: No Currently Unemployed: No Education: Bachelor's Degree Difficulty w/ Childcare or Family Care: No Living arrangements: with family Occupation/Education: occupation Additional occupation/education comments: [employer] Spiritual care concerns: No Agree to blood products: Yes Comments At time of signature, agree with nursing past medical, surgical, social and family history. There is no relevant family history pertinent to the presenting complaint Exam Narrative: GENERAL: Well-appearing, well-nourished, and in no acute distress. HEAD: Normocephalic, atraumatic. EYES: PERRLA and EOMI. ENT: Nares clear, no rhinorrhea or epistaxis. Mucous membranes moist.TM's normal throat pink with no swelling or lesions Patient has sores to left upper lip inside appear as ulcer type formation, reports facial pain and headache and soreness to the right side of his tongue where he also bit his tongue, no lesions or redness noted. Patient states he thinks he has infection and needs antibiotic NECK: Supple. no lymphadenopathy CHEST: Clear t
[2022-09-21 18:44] VITALS: BP 133/99; PULSE 76
== END 2022-09-21 18:50 | disposition home or self-care (01) ==
PROVIDERS: Emergency Provider Registered Nurse; PCP Clinical Nurse Specialist
DX: K13.70 Unspecified lesions of oral mucosa (principal); Z87.891 Personal history of nicotine dependence; F12.90 Cannabis use, unspecified, uncomplicated; I10 Essential (primary) hypertension
CPT/HCPCS: 99213; G0463

== ENCOUNTER 2022-11-07 15:33 | Emergency (ER) | payer OTHER, SELFPAY ==
[2022-11-07 15:40] VITALS: BP 132/91; PULSE 98; RESP 16; TEMP 37.9; O2SAT 98
--- NOTE | 2022-11-07 15:43 | ED.URI ---
HPI - URI/Sore Throat General Chief Complaint: Upper Respiratory Infection Stated Complaint: Fever;Bodyache;Headache Time Seen by Provider: 11/07/22 15:43 Source: patient Mode of arrival: ambulatory Limitations: no limitations History of Present Illness HPI Narrative: 47-year-old male presents with complaint of fatigue, body aches, headaches, low-grade fever, sore throat, congestion and cough starting yesterday. Has taken several doses of Tylenol to treat headache. Had to call into work today due to illness. Needs work note. All systems reviewed and negative except as noted above. Related Data Home Medications Medication Instructions Recorded Confirmed amlodipine 5 mg tablet 5 mg PO DAILY 10/06/22 11/07/22 Allergies Allergy/AdvReac Type Severity Reaction Status Date / Time No Known Allergies Allergy Verified 11/07/22 15:43 Review of Systems Review of Systems: CONSTITUTIONAL: Denies fever, chills, or sweats. EYES: Denies visual changes, redness, or discharge. ENT: Reports rhinorrhea, congestion, sore throat. Denies otalgia. CARDIOVASCULAR: Denies chest pain, palpitations, or edema. RESPIRATORY: Reports cough. Denies dyspnea. GASTROINTESTINAL: Denies abdominal pain, nausea, vomiting, or diarrhea. GENITOURINARY: Denies dysuria or hematuria. SKIN: Denies rash or itching. MUSCULOSKELETAL: Denies back pain, joint pain. Reports myalgia. NEUROLOGIC: Denies headache, numbness, or weakness. PSYCHIATRIC: Denies anxiety or depression. All other systems reviewed are negative, except as documented in HPI. [facility] Past Medical History Medical History Change in bowel habits Dysphagia Dysphonia Globus abdominalis Hematemesis Hypertension Family History Family History Father Hypertension Mother Diabetes mellitus Hypertension Grandparent Diabetes mellitus Hypertension Social History Social History Social History: Caffeine-8oz every other day Smoking status: Former smoker Tobacco type: cigarettes Alcohol intake: former Substance use: current Substance use type: marijuana Last use: Daily Lack of Transportation: No Lack of Food: Never True Current Housing: I Have Housing Concerned About Future Housing: No Difficulty Paying Gas/Electric Bills: No Difficulty Paying for Meds: No Currently Unemployed: No Education: Bachelor's Degree Difficulty w/ Childcare or Family Care: No Living arrangements: with family Occupation/Education: occupation Additional occupation/education comments: [employer] Spiritual care concerns: No Agree to blood products: Yes Comments At time of signature, agree with nursing past medical, surgical, social and family history. There is no relevant family history pertinent to the presenting complaint. Exam Narrative: GENERAL: This is a well-nourished, well-developed patient, patient ill-appearing but no acute distress. HEAD: normocephalic, atraumatic. EYES: PERRL. Sclera clear/white. Vision is grossly intact. EARS: External ears normal, auditory canals clear and without drainage, TMs normal without perforation. Hearing grossly intact. NOSE: External nose normal with no obvious nasal discharge, nares without redness, no rhinorrhea. THROAT: Mucous membranes moist, posterior pharynx clear. NECK: Neck supple, non-tender without lymphadenopathy, masses or thyromegaly. CARDIOVASCULAR: Regular rate and rhythm without murmurs, gallops, or rubs. RESPIRATORY: Clear to auscultation. Breath sounds equal bilaterally. No wheezes, rales, or rhonchi. SKIN: warm, Dry, intact with no suspicious lesions or rash, good texture and turgor. NEURO: awake, alert, and oriented to person, place and time. There were no obvious focal neurologic abnormalities. EXTREMITIES: No joint ten
[2022-11-07] MEDS: IBUPROFEN 600 MG TABLET PO (15:55)
== END 2022-11-07 16:17 | disposition home or self-care (01) ==
PROVIDERS: Emergency Provider Nurse Practitioner Family; PCP Internal Medicine
DX: U07.1 COVID-19 (principal); I10 Essential (primary) hypertension; Z87.891 Personal history of nicotine dependence; F12.90 Cannabis use, unspecified, uncomplicated
CPT/HCPCS: 87426; 87804; 99213; A9270; C9803; G0463

== ENCOUNTER 2022-11-11 09:25 | Emergency (ER) | payer OTHER, SELFPAY ==
--- NOTE | ~2022-11-11 | XR_ITS ---
EXAMINATION: XR chest 1V portable INDICATION: Cough, COVID 19 positive TECHNIQUE: Portable AP chest at 1021 hours COMPARISON: 05/20/2021 FINDINGS: There are patchy bilateral opacities of the lungs. No pleural effusion or pneumothorax. The cardiomediastinal silhouette is normal. IMPRESSION: 1. Patchy bilateral opacities of the lungs, likely COVID 19 pneumonia given the provided clinical his tory. Reviewed, dictated and finalized at location B. IMPRESSION: 1. Patchy bilateral opacities of the lungs, likely COVID 19 pneumonia given the provided clinical history.
[2022-11-11 09:41] VITALS: BP 148/94; PULSE 81; RESP 20; TEMP 36.4; O2SAT 98
--- NOTE | 2022-11-11 09:55 | ECG_ITS ---
Measurements Intervals [place] Rate: 72 P: 44 MA: 159 QRS: 57 QRSD: 97 T: 26 QT: 354 QTc: 388 Interpretive Statements SINUS RHYTHM BASELINE ARTIFACT- V2 NORMAL ECG COMPARED TO ECG 05/20/2021 17:59:25 NO SIGNIFICANT CHANGES Electronically Signed On 11-11-2022 10:28:46 CDT by Manuel Waldron D.O.
[2022-11-11] MEDS: LIDOCAINE HCL 2% VISC SOLN 15 ML UDC PO (10:04)
[2022-11-11 10:05] VITALS: PULSE 70; RESP 16
[2022-11-11] MEDS: KETOROLAC (*BKC) 60 MG/2 ML VIAL IM (10:05)
[2022-11-11] MEDS: ALBUTEROL SULFATE NEB 2.5 MG/3 ML INH INHALATION (10:11)
[2022-11-11] MEDS: IPRATROPIUM BR 0.02% INH SOLN 0.5 MG/2.5 ML VIAL INHALATION (10:11)
[2022-11-11 10:13] VITALS: PULSE 76; RESP 16
--- NOTE | 2022-11-11 11:35 | ED.GENADULT ---
HPI - General Adult General Chief complaint: Upper Respiratory Infection Stated complaint: covid/st Time Seen by Provider: 11/11/22 09:44 History of Present Illness HPI narrative: Patient is a 47-year-old male who presents ER with sore throat. Recently diagnosed with COVID-19. Reports he has noticed increased discomfort to his left tonsil and there is a white spot. He has copious sinus congestion. He has productive cough. Cough is worse after waking up in the morning. His voice has become hoarse. He also reports that he developed some mild chest discomfort on the left side. He is unsure if it is from coughing. No pain with deep breath. No hemoptysis. Related Data Home Medications Medication Instructions Recorded Confirmed amlodipine 5 mg tablet 5 mg PO DAILY 10/06/22 11/07/22 Allergies Allergy/AdvReac Type Severity Reaction Status Date / Time No Known Allergies Allergy Verified 11/07/22 15:43 Review of Systems Constitutional: Constitutional: Denies chills and Denies fever(s) ENT: Reports nasal congestion and Reports sore throat Cardiovascular: Cardiovascular: Reports chest pain, Denies rapid heart rate and Denies radiating jaw, neck or arm pain Respiratory: Respiratory: Reports cough, Denies dyspnea and Denies wheezing PMFSH Past Medical History Medical History Change in bowel habits Dysphagia Dysphonia Globus abdominalis Hematemesis Hypertension Family History Family History Father Hypertension Mother Diabetes mellitus Hypertension Grandparent Diabetes mellitus Hypertension Social History Social History Social History: Caffeine-8oz every other day Smoking status: Former smoker Tobacco type: cigarettes Alcohol intake: former Substance use: current Substance use type: marijuana Last use: Daily Lack of Transportation: No Lack of Food: Never True Current Housing: I Have Housing Concerned About Future Housing: No Difficulty Paying Gas/Electric Bills: No Difficulty Paying for Meds: No Currently Unemployed: No Education: Bachelor's Degree Difficulty w/ Childcare or Family Care: No Living arrangements: with family Occupation/Education: occupation Additional occupation/education comments: [employer] Spiritual care concerns: No Agree to blood products: Yes Exam Narrative: GENERAL: Well-appearing, well-nourished, and in no acute distress. HEAD: Normocephalic, atraumatic. EYES: PERRL and EOMI. ENT: Mucous membranes moist. Normal uvula. Left tonsil with small ulceration inferiorly. NECK: Supple. CHEST: Clear to auscultation. No respiratory distress. HEART: Regular rate and rhythm. Normal peripheral pulses.. EXTREMITIES: Normal range of motion. No edema. NEURO: Alert and oriented x3. PSYCH: Normal mood and affect. Course Course Emergency Course: Chest discomfort improved with Toradol. X-ray shows COVID-pneumonia. Discussed results with patient. He is 5 days into illness and not a candidate from [facility]. He is not hypoxic. Discussed supportive treatment. Viscous lidocaine improved patient sore throat. Vital Signs Vital signs: Vital Signs Temperature 97.5 F L 11/11/22 09:41 Pulse Rate 81 11/11/22 09:41 Respiratory Rate 20 11/11/22 09:41 Blood Pressure 148/94 H 11/11/22 09:41 Pulse Oximetry 98 11/11/22 09:41 Temperature 97.5 F L 11/11/22 09:41 Pulse Rate 76 11/11/22 12:03 Respiratory Rate 18 11/11/22 12:03 Blood Pressure 146/86 H 11/11/22 12:03 Pulse Oximetry 98 11/11/22 12:03 Medical Decision Making Vital Signs Vital Signs: Vital Signs Temperature 97.5 F L 11/11/22 09:41 Pulse Rate 81 11/11/22 09:41 Respiratory Rate 20 11/11/22 09:41 Blood Pressure 148/94 H 11/11/22 09:41 Pulse O
[2022-11-11 12:03] VITALS: BP 146/86; PULSE 76; RESP 18; O2SAT 98
== END 2022-11-11 12:04 | disposition home or self-care (01) ==
PROVIDERS: Emergency Provider Emergency Medicine; PCP Internal Medicine
DX: U07.1 COVID-19 (principal); J12.82 Pneumonia due to coronavirus disease 2019; J02.9 Acute pharyngitis, unspecified; R09.1 Pleurisy; I10 Essential (primary) hypertension; Z87.891 Personal history of nicotine dependence
CPT/HCPCS: 71045; 93005; 94640; 96372; 99283; J1885

== ENCOUNTER 2022-11-14 10:21 | Emergency (ER) | payer OTHER, SELFPAY ==
--- NOTE | 2022-11-14 10:25 | ED.URI ---
HPI - URI/Sore Throat General Chief Complaint: Upper Respiratory Infection Stated Complaint: Throat Irritation Time Seen by Provider: 11/14/22 10:24 Source: patient Mode of arrival: ambulatory Limitations: no limitations History of Present Illness HPI Narrative: Tony is a 47-year-old male patient presenting to the clinic today with complaints of a sore throat x 1 week. Was diagnosed with COVID on November 07 and diagnosed with COVID pneumonia on November 11 at [facility]. He was complaining of a sore throat at that time and they did not test him for strep. Was given prescription for naproxen, viscous lidocaine, and chlorhexidine gluconate mouthwash. Reports that he has lost his voice and is needing to go back to work and he is a speaker for work. Related Data Home Medications Medication Instructions Recorded Confirmed amlodipine 5 mg tablet 5 mg PO DAILY 10/06/22 11/14/22 Allergies Allergy/AdvReac Type Severity Reaction Status Date / Time No Known Allergies Allergy Verified 11/14/22 10:47 Review of Systems Review of Systems: Pertinent positives per HPI. Patient denies any fever, chills, rash, headache, visual changes, dizziness, cough, runny nose, sore throat, shortness of breath, chest pain, palpitations, nausea, vomiting, diarrhea, constipation, abdominal pain, or any urinary issues. [facility] Past Medical History Medical History Change in bowel habits Dysphagia Dysphonia Globus abdominalis Hematemesis Hypertension Family History Family History Father Hypertension Mother Diabetes mellitus Hypertension Grandparent Diabetes mellitus Hypertension Social History Social History Social History: Caffeine-8oz every other day Smoking status: Former smoker Tobacco type: cigarettes Alcohol intake: former Substance use: current Substance use type: marijuana Last use: Daily Lack of Transportation: No Lack of Food: Never True Current Housing: I Have Housing Concerned About Future Housing: No Difficulty Paying Gas/Electric Bills: No Difficulty Paying for Meds: No Currently Unemployed: No Education: Bachelor's Degree Difficulty w/ Childcare or Family Care: No Living arrangements: with family Occupation/Education: occupation Additional occupation/education comments: [employer] Spiritual care concerns: No Agree to blood products: Yes Comments At the time of my signature, I reviewed and agree with the nursing past medical, surgical, social, and family history. There is no relevant family history pertinent to the patient complaint. Exam Narrative: General: Well-developed, well nourished, in no apparent distress Head: Normocephalic, atraumatic Eyes: Pupils equally round and reactive to light bilaterally, EOM intact, sclera and conjunctive clear, no discharge, lids normal Ears: TMs intact and congested, ear canals clear, no drainage, grossly hearing normal. Nose: Nares patent, clear discharge, no inflammation, no sinus tenderness. Mouth: Oropharynx red without lesions or masses, good dentition, MMM. Postnasal drip Neck: Supple, trachea midline, no enlargement of anterior or posterior cervical nodes, no thyroid masses or goiter palpable. Cardio: Regular rate and rhythm, s1 and s2 normal, no murmur appreciated. Resp: Clear to auscultation bilaterally anteriorly and posteriorly, no rhonchi, rales, wheezing or rubs Course Course Emergency Course: Portions of this record may have been created with voice recognition software. Level of Care: Express Care Visit Vital Signs Vital signs: Vital signs reviewed MDM - URI/Sore Throat MDM Narrative Medical decision making narrative: At the time of visit patient is resting on the exam table. Strep screen was obtai
[2022-11-14 10:53] VITALS: BP 126/91; PULSE 84; RESP 16; TEMP 36.7; O2SAT 99
== END 2022-11-14 11:06 | disposition home or self-care (01) ==
PROVIDERS: Emergency Provider Nurse Practitioner Family; PCP Internal Medicine
DX: J02.9 Acute pharyngitis, unspecified (principal); U07.1 COVID-19; Z87.891 Personal history of nicotine dependence; F12.90 Cannabis use, unspecified, uncomplicated; I10 Essential (primary) hypertension
CPT/HCPCS: 87081; 87880; 99213; G0463

== ENCOUNTER 2022-11-18 08:29 | Outpatient (CLI) | payer OTHER, SELFPAY ==
--- NOTE | ~2022-11-18 | XR_ITS ---
EXAMINATION: XR chest 2V DATE: 11/18/2022 08:41 INDICATION: Shortness of breath and cough. TECHNIQUE: Frontal and lateral views of the chest were obtained. COMPARISON: Chest single view 11/11/22 FINDINGS: There is no pneumonia, pleural effusion, or pneumothorax. The heart size is normal. IMPRESSION: 1. No acute cardiopulmonary disease. Reviewed, dictated and finalized at location E.
== END 2022-11-18 08:30 ==
PROVIDERS: PCP Clinical Nurse Specialist; Visit Provider Clinical Nurse Specialist
DX: R06.02 Shortness of breath (principal); U07.1 COVID-19; R05.9 Cough, unspecified
CPT/HCPCS: 71046

== ENCOUNTER 2023-07-12 08:52 | Outpatient (CLI) | payer BC, SELFPAY ==
[2023-07-12 13:23] LABS: Basophils Absolute Auto 0.1 K/mm3 (0.0-0.1); Basophils Percent Auto 0.9 % (0.2-1.2); Eosinophils Absolute Auto 0.1 K/mm3 (0-0.3); Eosinophils Percent Auto 2.4 % (0-4.4); Hematocrit 51.5 % (42.0-52.0); Immature Granulocyte Absolute 0.02 K/mm3 (0.00-0.031); Immature Granulocyte Percent A 0.4 % (0-0.5); Lymphocytes Absolute Auto 1.54 K/mm3 (0.9-3.2); Lymphocytes Percent Auto 28.8 % (18.3-44.2); Mean Corpuscular Hemoglobin 29.3 pg (26-34); Mean Corpuscular Volume 88.6 fl (80-100); Mean Platelet Volume 11.6 fl (7.4-10.4); Monocytes Absolute Auto 0.4 K/mm3 (0.1-0.6); Monocytes Percent Auto 7.5 % (2.6-8.5); Neutrophils Absolute Auto 3.2 K/mm3 (1.3-6.7); Platelet Count Result 194 k/mm3 (150-375); Red Blood Count 5.81 M/mm3 (4.6-6.20); Red Cell Distribution Width 12.8 % (11.5-14.5); White Blood Count 5.3 K/mm3 (4.5-10.0)
[2023-07-12 13:30] LABS: Appearance Urine Clear (Clear); Bilirubin Urine Negative (Negative); Blood Urine Negative (Negative); Color Urine Yellow (Yellow); Glucose Urine UA Negative (Negative); Ketones Urine Negative (Negative); Leukocyte Esterase Ur Negative LEU/UL (Negative); Nitrate Urine Negative (Negative); Protein Urine Negative (Negative); Specific Grav Ur 1.018 (1.001-1.035); Urobilinogen Urine 0.2 mg/dL (<2.0)
[2023-07-12 13:37] LABS: Alanine Aminotransferase 34 U/L (6-50); Albumin Level 4.9 g/dL (3.5-5.1); Alkaline Phosphatase 59 U/L (38-126); Anion Gap 7 mmol/L (4-12); Aspartate Amino Transferase 49 U/L (17-59); Bilirubin,Total 0.4 mg/dL (0.2-1.3); Blood Urea Nitrogen 19 mg/dL (9-20); Calcium 9.2 mg/dL (8.4-10.2); Carbon Dioxide 28 mmol/L (22-30); Chloride 102 mmol/L (98-107); Cholesterol 157 mg/dL (0-200); Estimated Glomerular Filt Rate > 60; Glucose 92 mg/dL (65-110); HDL Direct 47 mg/dL; Potassium 4.5 mmol/L (3.4-5.0); Sodium 137 mmol/L (137-145); Triglycerides 73 mg/dL (<150)
[2023-07-12 13:45] LABS: Vitamin D 25 Hydroxy 30.8 ng/mL
[2023-07-12 13:48] LABS: LDL Cholesterol Direct 87 mg/dL
[2023-07-12 14:14] LABS: HIV 1/2 Ab P24 Ag Result Negative (Negative)
[2023-07-12 14:17] LABS: Hemoglobin A1C 5.3 % (<5.7)
[2023-07-12 14:18] LABS: Hepatitis C Virus Antibody Negative (Negative)
[2023-07-12 14:35] LABS: Rapid Plasma Reagin Non-Reactive (NonReactive)
[2023-07-12 17:06] LABS: Add Urine Microscopic? NO
[2023-07-12 17:48] LABS: Chlamydia trachomatis NOT DETECTED (NOT DETECTE); Neisseria gonorrhoeae PCR NOT DETECTED (NOT DETECTE)
[2023-07-17 15:04] LABS: Herpes Simplex Type 1 DNA PCR NOT DETECTED; Herpes Simplex Type 2 DNA PCR NOT DETECTED
== END 2023-07-12 08:53 | disposition home or self-care (01) ==
LOC: ANHGOSHLAB 08:53
PROVIDERS: PCP Clinical Nurse Specialist; Visit Provider Clinical Nurse Specialist
DX: Z11.3 Encounter for screening for infections with a predominantly sexual mode of transmission (principal); E55.9 Vitamin D deficiency, unspecified; I10 Essential (primary) hypertension; J32.9 Chronic sinusitis, unspecified; K92.0 Hematemesis; R06.00 Dyspnea, unspecified; R19.4 Change in bowel habit; R79.89 Other specified abnormal findings of blood chemistry
CPT/HCPCS: 36415; 80053; 80061; 81003; 82306; 83036; 84443; 85025; 86592; 86703; 86803; 87491; 87529; 87591; G0432

== ENCOUNTER 2023-08-15 16:59 | Emergency (ER) | payer BC, SELFPAY ==
[2023-08-15] VITALS (17 sets, daily range): BP systolic 129–146; BP diastolic 90–99; PULSE 111; RESP 16–18; TEMP 36.8–37.1; O2SAT 93–98
[2023-08-15 20:30] LABS: Influenza A QL RT-PCR Negative (Negative); Influenza B QL RT-PCR Negative (Negative); RSV RNA, RT-PCR Negative (Negative); SARS-CoV-2 RNA PCR Positive (Negative)
--- NOTE | 2023-08-15 20:58 | ED.FEVER ---
HPI - Fever General Chief Complaint: Fever Stated Complaint: fever Time Seen by Provider: 08/15/23 20:50 Source: patient Mode of arrival: ambulatory Limitations: no limitations History of Present Illness HPI Narrative: This is a 48-year-old male who presents to the ED for chief complaint of fever, headache for the past 24 hours. Patient reports elevated heart rate at home which was concerning to him. He also reports intermittent shortness of breath. Works in a restaurant. Denies any chest pain, abdominal pain, nausea, vomiting, back pain. Related Data Home Medications Medication Instructions Recorded Confirmed amlodipine 5 mg tablet 2.5 mg PO DAILY 03/16/23 07/23/23 Allergies Allergy/AdvReac Type Severity Reaction Status Date / Time No Known Allergies Allergy Verified 07/23/23 08:08 Review of Systems Review of Systems: All systems as dictated in [facility] Past Medical History Medical History (Updated 08/15/23 @ 21:22 by Keaton Brown PA-C) Change in bowel habits Dysphagia Dysphonia Globus abdominalis Hematemesis Hypertension Tick bite Family History Family History Father Hypertension Mother Diabetes mellitus Hypertension Grandparent Diabetes mellitus Hypertension Social History Social History Social History: Caffeine-8oz every other day Smoking status: Former smoker Tobacco type: cigarettes Alcohol intake: former Substance use: current Substance use type: marijuana Last use: Daily Do You Feel Safe in your Home?: Yes Lack of Transportation: No Lack of Food: Never True Current Housing: I Have Housing Concerned About Future Housing: No Difficulty Paying Gas/Electric Bills: No Difficulty Paying for Meds: No Currently Unemployed: No Education: Bachelor's Degree Difficulty w/ Childcare or Family Care: No Living arrangements: with family Occupation/Education: occupation Additional occupation/education comments: [employer] Spiritual care concerns: No Agree to blood products: Yes Exam Narrative: GENERAL: Well-appearing, well-nourished, and in no acute distress. HEAD: Normocephalic, atraumatic. EYES: PERRLA and EOMI. ENT: Nares clear, no rhinorrhea or epistaxis. Mucous membranes moist. Oropharynx without tonsillar hypertrophy exudate or other lesions. NECK: Supple. No adenopathy or masses. CHEST: No respiratory distress. Clear to auscultation. No wheezes rales or rhonchi HEART: Regular rate and rhythm. No murmur heard. Normal peripheral pulses. ABDOMEN: Soft, nontender, nondistended, normal active bowel sounds. MSK: Normal range of motion. No edema. SKIN: Warm, dry, no rash. NEURO: Alert and oriented x4. No focal deficits. PSYCH: Normal mood and affect. Course Vital Signs Vital signs: Vital Signs Temperature 98.3 F 08/15/23 17:05 Pulse Rate 111 H 08/15/23 17:05 Respiratory Rate 16 08/15/23 17:05 Blood Pressure 144/90 H 08/15/23 17:05 Pulse Oximetry 96 08/15/23 17:05 Temperature 98.7 F 08/15/23 21:40 Pulse Rate 111 H 08/15/23 17:05 Respiratory Rate 18 08/15/23 21:40 Blood Pressure 142/93 H 08/15/23 20:16 Pulse Oximetry 97 08/15/23 21:40 MDM - Fever MDM Narrative Medical decision making narrative: This is a 48-year-old male who presents to the ED with chief complaint of headache in URI symptoms. Vitals show slight tachycardia but otherwise normal. He is well-appearing on exam. COVID test is positive today. Symptoms are consistent with viral syndrome due to COVID. He is not a candidate for paxlovid. Pt will be discharged in stable condition. Return precautions given and supportive measures discussed. Pt is understanding and agreeable with plan for discharge and follow-up with PCP. Lab Data Labs: Lab Results 08/15/23 Range/Units 19
== END 2023-08-15 21:42 | disposition home or self-care (01) ==
PROVIDERS: Student in an Organized Health Care Education/Training Program; Emergency Provider Physician Assistant; PCP Clinical Nurse Specialist
DX: U07.1 COVID-19 (principal); I10 Essential (primary) hypertension; Z87.891 Personal history of nicotine dependence
CPT/HCPCS: 87637; 99283

== ENCOUNTER 2024-03-02 08:09 | Emergency (ER) | payer SELFPAY ==
--- NOTE | ~2024-03-02 | XR_ITS ---
EXAMINATION: XR chest 2V 03/02/2024 08:48 INDICATION: Chest congestion, cough and fever PROCEDURE: 2 view chest COMPARISON: Comparison to multiple prior studies sequentially, with oldest reviewed study dated 05/20. FINDINGS: The lungs are clear. The cardiomediastinal silhouette is within normal limits. There are no pleural effusions. There is no pneumothorax suspected. IMPRESSION: 1: NO ACUTE CARDIOPULMONARY DISEASE. Reviewed, dictated and finalized at location B. LE AND GLASS INSPECTOR
--- NOTE | 2024-03-02 08:13 | ED.URI ---
HPI - URI/Sore Throat General Chief Complaint: Upper Respiratory Infection Stated Complaint: Sore Throat, Fever Time Seen by Provider: 03/02/24 08:13 Source: patient, RN notes reviewed and old records reviewed Mode of arrival: ambulatory Limitations: no limitations History of Present Illness HPI Narrative: Patient reports 4 days of flu-like symptoms including fever, sore throat, cough, sinus pain and nasal congestion. He has been taking DayQuil, NyQuil, Aleve for his symptoms with moderate relief. He reports T-max of 102?. He reports that medications that he is taking for symptoms are controlling his fever well, but not his other symptoms. He reports that he has a hoarse voice due to his symptoms and this is affecting his ability to do his job Related Data Allergies Allergy/AdvReac Type Severity Reaction Status Date / Time No Known Allergies Allergy Verified 03/02/24 08:23 Review of Systems Review of Systems: All systems reviewed & are unremarkable except as noted in HPI and below Constitutional: Constitutional: Reports as per HPI, Reports no additional constitutional complaints, Reports fever(s), Reports headache(s) and Reports lethargy ENT: Reports system reviewed and no additional complaints, except as documented, Reports headache(s), Reports nasal congestion, Reports nasal discharge, Reports sinus pain and Reports sinus pressure Cardiovascular: Cardiovascular: Reports no additional cardiovascular complaints Respiratory: Respiratory: Reports no additional respiratory complaints, Reports chest congestion, Reports cough and Reports wheezing Gastrointestinal: Gastrointestinal: Reports no additional gastrointestinal complaints PMFSH Past Medical History Medical History Tick bite Dysphonia Change in bowel habits Dysphagia Globus abdominalis Hematemesis Hypertension Family History Family History Father Hypertension Mother Diabetes mellitus Hypertension Grandparent Diabetes mellitus Hypertension Social History Social History Social History: Caffeine-8oz every other day Smoking status: Former smoker Tobacco type: cigarettes Alcohol intake: former Substance use: current Substance use type: marijuana Last use: Daily Do You Feel Safe in your Home?: Yes Lack of Transportation: No Lack of Food: Never True Current Housing: I Have Housing Concerned About Future Housing: No Difficulty Paying Gas/Electric Bills: No Difficulty Paying for Meds: No Currently Unemployed: No Education: Bachelor's Degree Difficulty w/ Childcare or Family Care: No Living arrangements: with family Occupation/Education: occupation Additional occupation/education comments: [employer] Spiritual care concerns: No Agree to blood products: Yes Comments At the time of my signature, I reviewed and agree with the nursing past medical, surgical, social, and family history. There is no relevant family history pertinent to the patient complaint. Exam Const: General: cooperative, no acute distress, alert and awake Orientation/consciousness: oriented to person, oriented to place and oriented to time HENMT: Head: normal to inspection Ears: TM's normal bilaterally Face/Nose/Sinus: Nasal discharge present clear Mouth: Yes moist mucous membranes Throat: posterior oropharynx abnormal erythema Resp: Effort & Inspection: normal respiratory effort and able to speak in complete sentences Auscultation: clear to auscultation bilaterally, no crackles, no rales, no rhonchi and no wheezes Cardio: Palpation: normal PMI Rate: regular rate Rhythm: regular rhythm Heart sounds: S1 normal heart sound present and S2 normal heart sound present Neuro: General: oriented to person, oriented to place and oriented to time Cranial nerves: Yes CN's II-XII intact bilaterally Psych: Appearance: grossly normal Thought process: Normal thought process present Insight: Good insight present (Psych) Judgement: Good judgement present (Psych) Course Course Level of Care: Express Care Visit Vital Signs Vital signs: Reviewed MDM - URI/Sore Throat MDM Narrative Medical decision making narrative: negative COVID, positive flu, negative chest x-ray. Symptoms present for 4-5 days. Treat symptomatically. Patient nontoxic appearing and in no distress. Discharge instructions reviewed with patient, as well as provided in writing per nursing staff. The instructions also include specific and strict return/GO TO THE ER as well as f/u information. All questions have been answered, and the patient deny any further questions with discharge and discharge plan. Some parts of this dictation were generated by voice recognition software and may contain typographical and/or grammatical inaccuracies. Differential Diagnosis Differential diagnosis: Likely upper respiratory infection, viral infection, bronchitis, influenza and pharyngitis Medical Records Attestation: I reviewed the patient's medical records. Lab Data Attestation: I reviewed the patient's lab results. Imaging Data Attestation: I personally reviewed and interpreted this imaging study as follows: My impression: negative chest Radiologist's impression: Express [address] [place] [address] XRay Report Signed Patient: Tony Goode : 1975 MR#: [id number] Age: 49 Acct:[id number] Loc: [facility] ADM Date: 03/02/24Attending Dr: Ordering Physician: Zo Silva FNP Date of Service: 03/02/24 Procedure(s): XR chest 2V Accession Number(s): [id number] cc: Zo Silva FNP; Ozzy Degroot DO~ EXAMINATION: XR chest 2V 03/02/2024 08:48 INDICATION: Chest congestion, cough and fever PROCEDURE: 2 view chest COMPARISON: Comparison to multiple prior studies sequentially, with oldest reviewed study dated 05/20/2021. FINDINGS: The lungs are clear. The cardiomediastinal silhouette is within normal limits. There are no pleural effusions. There is no pneumothorax suspected. IMPRESSION: 1: NO ACUTE CARDIOPULMONARY DISEASE. Reviewed, dictated and finalized at location B. GOODS MARKER Please be advised this is a medical document. It is intended for [id number] communication. It is written in medical language and may contain unfamiliar abbreviations or verbiage. Medical documents are intended to carry relevant information, facts as evident, and the clinical opinion of the practitioner at the time of the encounter. This report may have been done utilizing a voice recognition system. Attempts have been made to correct errors. However, there may be uncorrected grammatical, spelling, and recognition errors present. The file time of this note does not necessarily represent the time the patient was seen. Dictated By: Jarrod Salmon MD 03/02/24 0850 Signed By: <Electronically signed by Jarrod Salmon MD in OV> 03/02/24 0851 Discharge Plan Discharge Clinical Impression: Influenza Patient Disposition: Home, Self-Care Condition: Stable Instructions: Antibiotic Form, Influenza (ED) Additional Instructions: Take medications as prescribed. Follow-up with primary care provider. Emergency department for new or worsening symptoms Patient Language: Egyptian Prescriptions: New albuterol sulfate [Ventolin HFA] 90 mcg/actuation HFA aerosol inhaler 2 puff inhalation QID PRN (Reason: shortness of breath or wheezing) Qty: 8.5 0RF benzonatate 200 mg capsule 200 mg PO TID PRN (Reason: cough) Qty: 20 0RF No Action amlodipine 2.5 mg tablet 2.5 mg PO DAILY Qty: 90 2RF Follow-up/Referrals: Ozzy Degroot DO [Primary Care Provider] - 2 Weeks Stand Alone Forms: Work/School Release IP Time of Disposition: 08:59
[2024-03-02 08:27] VITALS: BP 124/82; PULSE 83; RESP 16; TEMP 36.2; O2SAT 96
[2024-03-02 08:39] LABS: EDSTREPNEGPOS1 Negative (Negative)
[2024-03-02 08:42] LABS: EDCOVIDSCREEN Negative (Negative); EDINFLUASCREEN Positive (Negative); EDINFLUBSCREEN Negative (Negative)
== END 2024-03-02 09:09 | disposition home or self-care (01) ==
PROVIDERS: Emergency Provider Nurse Practitioner Family; PCP Internal Medicine
DX: J10.1 Influenza due to other identified influenza virus with other respiratory manifestations (principal); Z20.822 Contact with and (suspected) exposure to COVID-19; I10 Essential (primary) hypertension; Z87.891 Personal history of nicotine dependence; F12.90 Cannabis use, unspecified, uncomplicated
CPT/HCPCS: 71046; 87426; 87804; 87880; 99213; G0463

== ENCOUNTER 2024-11-10 09:03 | Outpatient (CLI) | payer OTHER, SELFPAY ==
--- OUTSIDE RECORDS SUMMARY | 2024-11-10 09:06 | XMS_ITS | Clinical Summary ---
Author Organization [facility] Address [address] [place] [id number] Care Team Providers Care Blender Helper Name Role Phone None, Provider MD Primary Care Provider Unavaila ble Allergies No known active allergies Medications No known medications Family History Medical History Relation Comments Hypertension Father Diabetes Mother Hypertension Mother Relation Status Comments Father Alive Mother Alive Social History Tobacco Use Types Packs/Day Years Used Date Smoking Tobacco: Former Smokeless Tobacco: Never Alcohol Use Standard Drinks/Week Comments Not Currently 0 (1 standard drink = 0.6 oz pur e alcohol) Sex and Gender Information Value Date Recorded Sex Assigned at Not on file Legal Sex Male 4:03 PM CDT Gender Identity Not on file Sexual Orientation Not on file Last Filed Vital Signs Vital Sign Reading Time Taken Comments Blood Pressure 145/99 08/19/2020 4:16 PM CDT Pulse 98 08/19/2020 4:16 PM CDT Temperature 36.8 C (98.3 F) 08/19/2020 4:16 PM CDT Respiratory Rate 20 08/19/2020 4:16 PM CDT Oxygen Saturation 100% 08/19/2020 4:16 PM CDT Inhaled Oxygen Concentration - - Weight 95.3 kg (210 lb) 08/19/2020 4:16 PM CDT Height 182.9 cm (6') 08/19/2020 4:16 PM CDT Body Mass Index 28.48 08/19/2020 4:16 PM CDT Plan of Treatment Health Maintenance Due Date Last Done Comments Colorectal Cancer Screening Colonoscopy (10 Years) 1975 Annual Physical 01/03/1979 Hepatitis C 01/03/1994 DTaP, Tdap and Td Vaccines ( 1 - Tdap) 01/03/1995 Hepatitis B Vaccines (1 of 3 - 19+ 3-dose series) 01/03/1995 COVID-19 Vaccine (3 - 2024-2 6 season) 2024 06/28/2020, 05/31/2020 Meningococcal B Vaccine Aged Out No l onger eligible based on patient's age to complete this topic Meningococcal Vaccine Aged Out No calin ml eligible based on patient's age to complete this topic Pneumococcal Vaccine: Pediatrics (0 to 5 Years) and At-Risk Patients (6 to 49 Years) Aged Out No longer eligible b ased on patient's age to complete this topic RSV Immunizations Under 20 Months Aged Out No longer eligible b ased on patient's age to complete this topic Care Teams Blender Helper Relationship Specialty Start Date End Date None, Provider, PCP - General 08/19/20
[2024-11-10 13:28] LABS: Hematocrit 48.8 % (42.0-52.0); Hemoglobin 16.1 g/dL (14.0-18.0); Immature Granulocyte Percent A 0.4 % (0-0.5); Lymphocytes Absolute Auto 1.36 K/mm3 (0.9-3.2); Mean Corpuscular HGB Conc 33.0 g/dl (32-36); Mean Corpuscular Hemoglobin 29.1 pg (26-34); Mean Corpuscular Volume 88.1 fl (80-100); Nucleated Red Blood Cells Absolute Auto 0.000 K/mm3 (0.0-0.012); Nucleated Red Blood Cells Perc 0.0 % (0.0-0.2); Platelet Count Result 193 k/mm3 (150-375); Red Blood Count 5.54 M/mm3 (4.6-6.20); White Blood Count 5.3 K/mm3 (4.5-10.0)
[2024-11-10 13:43] LABS: Alanine Aminotransferase 71 U/L (6-50); Albumin Level 4.5 g/dL (3.5-5.1); Alkaline Phosphatase 59 U/L (38-126); Anion Gap 6 mmol/L (4-12); Aspartate Amino Transferase 47 U/L (17-59); Bilirubin,Total 0.6 mg/dL (0.2-1.3); Blood Urea Nitrogen 18 mg/dL (9-20); Calcium 9.2 mg/dL (8.4-10.2); Carbon Dioxide 29 mmol/L (22-30); Chloride 101 mmol/L (98-107); Cholesterol 157 mg/dL (0-200); Estimated Glomerular Filt Rate > 60; Glucose 83 mg/dL (65-110); HDL Direct 44 mg/dL; Potassium 4.3 mmol/L (3.4-5.0); Sodium 136 mmol/L (137-145); Total Protein 8.0 g/dL (6.3-8.2); Triglycerides 83 mg/dL (<150)
[2024-11-10 14:01] LABS: MALB Creatinine Ratio 4.2 mg/g (0-30)
[2024-11-10 14:11] LABS: Syphilis IgG/IgM Antibody Non-Reactive (Nonreactive)
[2024-11-10 14:19] LABS: HIV 1/2 Ab P24 Ag Result Negative (Negative)
[2024-11-10 14:54] LABS: Hemoglobin A1C 5.5 % (<5.7)
== END 2024-11-10 09:04 | disposition home or self-care (01) ==
LOC: ANHGOSHLAB 09:04
PROVIDERS: PCP Internal Medicine; Visit Provider Clinical Nurse Specialist
DX: I10 Essential (primary) hypertension (principal); R73.01 Impaired fasting glucose; Z13.29 Encounter for screening for other suspected endocrine disorder; Z11.3 Encounter for screening for infections with a predominantly sexual mode of transmission
CPT/HCPCS: 36415; 80053; 80061; 82043; 83036; 85025; 86593; 86703; 87491; 87591; G0432

== ENCOUNTER 2024-11-20 12:48 | Outpatient (CLI) | payer OTHER, SELFPAY ==
--- OUTSIDE RECORDS SUMMARY | 2024-11-20 12:54 | XMS_ITS | Clinical Summary ---
Author Organization [facility] Address [address] [place] [id number] Care Team Providers Care Button Maker Name Role Phone None, Provider MD Primary [...] topic Meningococcal Vaccine Aged Out No calin lm eligible based on patient's age to complete this topic Pneumococcal Vaccine: Pediatrics (0 to 5 Years) and At-Risk Patients (6 to 49 Years) Aged Out No longer eligible b ased on patient's age to complete this topic RSV Immunizations Under 20 Months Aged Out No longer eligible b ased on patient's age to complete this topic Care Teams Button Maker Relationship Specialty Start Date End Date None, Provider, PCP - General 08/19/20
[2024-11-20 18:47] LABS: Alanine Aminotransferase 47 U/L (6-50); Albumin Level 4.3 g/dL (3.5-5.1); Alkaline Phosphatase 60 U/L (38-126); Anion Gap 5 mmol/L (4-12); Aspartate Amino Transferase 38 U/L (17-59); Bilirubin,Total 0.4 mg/dL (0.2-1.3); Blood Urea Nitrogen 14 mg/dL (9-20); Calcium 8.8 mg/dL (8.4-10.2); Carbon Dioxide 27 mmol/L (22-30); Chloride 103 mmol/L (98-107); Estimated Glomerular Filt Rate > 60; Glucose 97 mg/dL (65-110); Potassium 4.4 mmol/L (3.4-5.0); Sodium 135 mmol/L (137-145); Total Protein 7.5 g/dL (6.3-8.2)
== END 2024-11-20 12:49 | disposition home or self-care (01) ==
LOC: ANHGOSHLAB 12:49
PROVIDERS: PCP Internal Medicine; Visit Provider Clinical Nurse Specialist
DX: R74.01 Elevation of levels of liver transaminase levels (principal)
CPT/HCPCS: 36415; 80053

== ENCOUNTER 2025-02-12 09:28 | Emergency (ER) | payer OTHER, SELFPAY ==
--- NOTE | ~2025-02-12 | XR_ITS ---
EXAMINATION: XR chest 2V DATE: 02/12/2025 10:32 INDICATION: 3 days of cough and chest congestion TECHNIQUE: PA and lateral views of the chest were obtained. COMPARISON: Chest radiograph dated 03/02/2024 FINDINGS: The lungs remain clear with no focal airspace opacities, pulmonary edema, pleural effusion or pneumothorax. The cardiomediastinal silhouette is normal. Mild thoracolumbar levocurvature with moderate spondylosis. IMPRESSION: 1. No acute cardiopulmonary disease. Reviewed, dictated and finalized at location A. H HAND SUPERVISOR
[2025-02-12 10:01] VITALS: BP 139/88; PULSE 89; RESP 16; TEMP 37.3; O2SAT 99
[2025-02-12 10:12] LABS: EDCOVIDSCREEN Negative (Negative); EDINFLUASCREEN Negative (Negative); EDINFLUBSCREEN Negative (Negative); EDSTREPNEGPOS1 Negative (Negative)
--- NOTE | 2025-02-12 11:12 | ED_ITS ---
HPI - URI/Sore Throat General Chief Complaint: Upper Respiratory Infection Stated Complaint: Cold Symptoms Time Seen by Provider: 02/12/25 11:08 Source: patient and RN notes reviewed Mode of arrival: ambulatory Limitations: no limitations History of Present Illness HPI Narrative: 50-year-old male presents with concern for sore throat, nasal congestion and drainage, productive cough for 3 days. Reports painful swallowing. He has taken DayQuil and ibuprofen without relief. He denies known sick contacts. MD elicited complaint: cough, sore throat and nasal congestion Related Data Allergies Allergy/AdvReac Type Severity Reaction Status Date / Time No Known Allergies Allergy Verified 02/12/25 10:16 Review of Systems Review of Systems: CONSTITUTIONAL: Reports malaise, chills, sweats, tech fever. EYES: Denies visual changes, redness, or discharge. ENT: Reports rhinorrhea, congestion, sore throat. CARDIOVASCULAR: Denies chest pain, palpitations, or edema. RESPIRATORY: Reports productive cough. Denies dyspnea. GASTROINTESTINAL: Denies abdominal pain, nausea, vomiting, diarrhea SKIN: Denies rash or itching. MUSCULOSKELETAL: Reports myalgia. NEUROLOGIC: Reports headache. All systems reviewed & are unremarkable except as noted in HPI and below PMFSH Past Medical History Medical History Encounter to establish care Hospital discharge follow-up Tick bite Dysphonia Change in bowel habits Dysphagia Globus abdominalis Hematemesis Hypertension Family History Family History Father Hypertension Mother Diabetes mellitus Hypertension Grandparent Diabetes mellitus Hypertension Social History Social History Social History: Caffeine-8oz every other day Smoking status: Former smoker Tobacco type: cigarettes Alcohol intake: former Substance use: current Substance use type: marijuana Last use: Daily Lack of Transportation: No Lack of Food: Never True Current Housing: I Have Housing Concerned About Future Housing: No Difficulty Paying Gas/Electric Bills: No Difficulty Paying for Meds: No Currently Unemployed: No Education: Bachelor's Degree Difficulty w/ Childcare or Family Care: No Living arrangements: with family Occupation/Education: occupation Additional occupation/education comments: [employer] Spiritual care concerns: No Agree to blood products: Yes Comments At time of signature, agree with nursing past medical, surgical, social and family history. There is no relevant family history pertinent to the presenting complaint Exam Narrative: GENERAL: Well-appearing, well-nourished, and in no acute distress. HEAD: Normocephalic EYES: PERRLA, conjunctivae clear ENT: Nares clear, turbinates edematous and erythematous, clear discharge. Mucous membranes moist. TM pearly jaime with dull light reflex bilaterally; no tragal tenderness. Oropharynx not erythematous without lesions. Tonsils not enlarged and without exudate, no drooling, no hoarseness, no trismus, uvula midline. NECK: Supple. No lymphadenopathy CHEST: Clear to auscultation, breath sounds equal. No wheezing, rhonchi, rales, or stridor. No respiratory distress, speaks in full sentences. HEART: Regular rate and rhythm. No murmur heard. SKIN: Warm, dry, no rash. NEURO: Alert and oriented x3. PSYCH: Normal mood and affect Course Course Emergency Course: Patient is aware of diagnosis, understands and agrees to treatment plan. Anticipatory guidance given. Patient agrees to follow-up as directed and is aware of reasons to seek care at the emergency department. Portions of this record may have been created with voice recognition software Level of Care: [facility] Visit Vital Signs Vital signs: Vital Signs Temperature 99.1 F 02/12/25 10:01 Pulse Rate 89 02/12/25 10:01 Respiratory Rate 16 02/12/25 10:01 Blood Pressure 139/88 02/12/25 10:01 Pulse Oximetry 99 02/12/25 10:01 Temperature 99.1 F 02/12/25 10:01 Pulse Rate 89 02/12/25 10:01 Respiratory Rate 16 02/12/25 10:01 Blood Pressure 139/88 02/12/25 10:01 Pulse Oximetry 99 02/12/25 10:01 MDM Differential Diagnosis Differential Diagnosis: I evaluated this patient in the doctors hospital care. History is obtained from patient who is an independent historian and physical exam was performed.? Available medical records were reviewed. ? Exam findings and relevant testing show no acute concerns or changes; patient is non-toxic appearing and is in no distress. ? Differential diagnosis considered: [place] virus, strep pharyngitis, allergic rhinitis, upper respiratory tract infection, sinusitis, rhinosinusitis, nasopharyngitis. viral pharyngitis, otitis media, otitis externa, pneumonia, bronchitis, viral cough syndrome, viral syndrome, and influenza. Differential diagnosis and treatment plan were discussed with the patient. Patient agrees with discussion and after shared medical decision making agrees with plan of care. All questions were answered to the patient's satisfaction. Patient is appropriate for outpatient treatment and follow-up. Lab Data Labs: Lab Results 02/12/25 Range/Units 10:09 POC Influenza A Ag Negative (Negative) POC Influenza B Ag Negative (Negative) POC SARS CoV-2 Ag Negative (Negative) POC Grp A Strep Screen Negative (Negative) Imaging Data Radiologist's impression: ITS Impressions Chest X-Ray 02/12/25 10:41 IMPRESSION: 1. No acute cardiopulmonary disease. Discharge Plan Discharge Clinical Impression: Acute tonsillitis Patient Disposition: Home Condition: Stable Instructions: Antibiotic Form, Tonsillitis (ED) Additional Instructions: -Take the medication as prescribed. Throw away the toothbrush after 24hours of antibiotic. -Eat and drink things that are easy to swallow, like tea or soup, or popsicles to suck on. -Oral rinses such as: Salt water gargles and/or may use topical anesthetic (eg. Chloraseptic spray) or lozenges to relieve dryness or throat pain). -Take Tylenol and ibuprofen as needed for pain and fever as directed. -Frequent hand washing or hand grinder and plater is one of the best ways to prevent sp read of infection. -Follow up with primary care provider in 2-3 days if condition is not improving; or seek ER visit if you have trouble breathing, cannot drink enough fluids, have muffled voice, difficulty opening your mouth, or severe swelling. Patient Language: Bruneian Prescriptions: New amoxicillin 875 mg tablet 875 mg PO Q12H 10 Days Qty: 20 0RF Follow-up/Referrals: Ozzy Degroot DO [Primary Care Provider, Internal Medicine] Time of Disposition: 11:17
== END 2025-02-12 11:22 | disposition home or self-care (01) ==
PROVIDERS: Emergency Provider Nurse Practitioner; PCP Internal Medicine
DX: J03.90 Acute tonsillitis, unspecified (principal); Z20.822 Contact with and (suspected) exposure to COVID-19; F12.90 Cannabis use, unspecified, uncomplicated; I10 Essential (primary) hypertension; Z87.891 Personal history of nicotine dependence
CPT/HCPCS: 71046; 87081; 87426; 87804; 87880; 99213; G0463